=== PATIENT | female | born 1975 | race Caucasian/White ===

== ENCOUNTER 2021-06-13 11:23 | Outpatient (CLI) | payer MEDICARE ==
[2021-06-13] VITALS (7 sets, daily range): BP systolic 126–149; BP diastolic 74–89; PULSE 81–88; TEMP 98.9
[~2021-06-13] VITALS: Ht 160 cm; Wt 140.9 kg
[2021-06-13] MEDS ORDERED: PHARMASSURE ZIN50 MG PO (11:40)
[2021-06-13] MEDS ORDERED: MASON NATURAL2000 IU PO (11:41)
[2021-06-13] MEDS ORDERED: NEURONTIN300 MG/CAP PO (11:42)
[2021-06-13] MEDS ORDERED: ASPIRIN 32325 MG/TA1 PO (11:42)
[2021-06-13] MEDS ORDERED: LEXAPRO20 MG PO (11:44)
[2021-06-13] MEDS ORDERED: PLAVIX 75MG TAB75 MG PO (11:44)
[2021-06-13] MEDS ORDERED: WELLBUTRIN SR150 M1 PO (11:44)
[2021-06-13] MEDS ORDERED: PREDNISONE 2.52.5 MG PO (11:45)
[2021-06-13] MEDS ORDERED: VERELAN120 MG PO (11:45)
[2021-06-13] MEDS ORDERED: HCTZ 25MG TAB25 MG PO (11:46)
[2021-06-13] MEDS ORDERED: SUDAFED60 MG PO (11:46)
[2021-06-13] MEDS ORDERED: CYTOTEC200 MCG PO (11:47)
[2021-06-13] MEDS ORDERED: SEROQUEL50 MG PO (11:47)
[2021-06-13] MEDS ORDERED: ACTEMRA20 MG/ML IV (11:49)
[2021-06-13] MEDS ORDERED: BENADRYL25 M2 PO (11:49)
[2021-06-13] MEDS ORDERED: ALBUTEROL0.83 MG/ML IH (11:50)
[2021-06-13] MEDS ORDERED: PROAIR HFA0.09 MG/AC IH (11:50)
--- NOTE | 2021-06-13 13:21 | NUR ---
Pt tolerated infusion and 1 hr observation period without issue. INT DC'd with catheter intact. She was assisted out to parking lot by wheelchair.
== END 2021-06-13 13:29 | disposition home or self-care (01) ==
LOC: EUO 11:23
DX: U07.1 COVID-19 (principal)
CPT/HCPCS: M0245